=== PATIENT | male | born 1960 | race Caucasian/White ===

== ENCOUNTER 2018-01-15 14:30 | Emergency (ER) | payer SELFPAY ==
[~2018-01-15] VITALS: Ht 177.8 cm; Wt 68.2 kg
[2018-01-15 14:33] VITALS: TEMP 98.4
[2018-01-15 14:54] LABS: GASTROCCULT POSITIVE; pH GASTRIC CONTENTS 2
[2018-01-15 14:56] LABS: BASO # 0.2 (0.0-0.2); BASO % 1.3 % (0.0-2.0); EOS % 0.2 % (0-4.0); GRAN # 9.2 (1.4-6.5); GRAN % 74.7 % (42.2-75.2); HEMATOCRIT 42.4 % (42.0-52.0); HEMOGLOBIN 14.9 g/dl (13.5-18.0); LYMPH # 2.1 (1.2-3.4); MEAN CELL VOLUME 92 fl (80.0-100.0); MEAN CORPUSCULAR HEMOGLOBIN 33 pg (27.0-31.0); MEAN CORPUSCULAR HGB CONC 35 g/dl (33.0-37.0); MEAN PLATELET VOLUME 9.5 fl (7.4-10.4); MONO # 0.8 (0.1-0.6); MONO % 6.4 % (1.7-9.3); PLATELET COUNT 317 K/mm3 (130-400); RED BLOOD COUNT 4.59 M/mm3 (4.20-5.60); REDCELL DISTRIBUTION WIDTH-CV 13.2 % (11.5-14.5)
[2018-01-15 15:05] LABS: ALANINE AMINOTRANSFERASE 28 U/L (21-72); ALBUMIN 4.8 gm/dL (3.5-5.0); ALKALINE PHOSPHATASE 105 U/L (50-136); ANION GAP 17 mmol/L (7-16); AST,SGOT 40 U/L (15-37); BILIRUBIN,TOTAL 0.8 mg/dL (0.0-1.0); BLOOD UREA NITROGEN 17 mg/dL (9-20); CALCIUM 10.1 mg/dL (8.4-10.2); CARBON DIOXIDE 23 mmol/L (22-30); CHLORIDE 98 mmol/L (98-107); CREATININE, serum 0.83 mg/dL (0.66-1.25); GLUCOSE 102 mg/dL (74-106); LIPASE 119 U/L (23-300); POTASSIUM 4.4 mmol/L (3.4-5.0); SODIUM 138 mmol/L (137-145); TOTAL PROTEIN 8.8 gm/dL (6.4-8.2)
[2018-01-15 15:27] LABS: TROPONIN-I < 0.012 ng/mL (0.000-0.034)
[2018-01-15] MEDS ORDERED: ARICEPT 5MG PO (15:33)
[2018-01-15] MEDS ORDERED: IPRATROPIUM BROM3 M1 IH (15:33)
[2018-01-15] MEDS ORDERED: NORCO 325 MG-101 TAB PO (15:34)
[2018-01-15] MEDS ORDERED: CATAPRES0.3 MG PO (15:38)
[2018-01-15] MEDS ORDERED: BYVALSON 5 MG-1 EACH PO (17:13)
[2018-01-15 17:45] VITALS: BP 134/83; PULSE 75
[2018-01-15] MEDS ORDERED: PHENERGAN 25 TA25 MG PO (17:58)
== END 2018-01-15 18:31 | disposition home or self-care (01) ==
LOC: COL.ER 14:30
PROVIDERS: Emergency Medicine
DX: R07.89 Other chest pain (principal); R11.10 Vomiting, unspecified; I10 Essential (primary) hypertension; M06.9 Rheumatoid arthritis, unspecified
CPT/HCPCS: C9113; J0780; J7030

== ENCOUNTER 2018-10-03 21:03 | Observation (INO) | payer SELFPAY ==
[~2018-10-03] VITALS: Ht 177.8 cm; Wt 67.9 kg
[~2018-10-03 21:03] MED LIST: ARICEPT 5MG PO; BYVALSON 5 MG-1 EACH PO; CATAPRES0.3 MG PO; IPRATROPIUM BROM3 M1 IH; NORCO 325 MG-101 TAB PO; PHENERGAN 25 TA25 MG PO
[2018-10-03 21:27] LABS: PARTIAL THROMBOPLASTIN TIME 33.2 SECONDS (26.0-37.0)
[2018-10-03 21:29] LABS: BASO # 0.3 (0.0-0.2); BASO % 1.9 % (0.0-2.0); EOS # 0.1 (0.0-0.7); EOS % 0.9 % (0-4.0); GRAN # 10.2 (1.4-6.5); GRAN % 78.5 % (42.2-75.2); HEMATOCRIT 40.8 % (42.0-52.0); HEMOGLOBIN 13.8 g/dl (13.5-18.0); LYMPH # 1.9 (1.2-3.4); LYMPH % 14.4 % (20.0-51.0); MEAN CELL VOLUME 94 fl (80.0-100.0); MEAN CORPUSCULAR HEMOGLOBIN 32 pg (27.0-31.0); MEAN CORPUSCULAR HGB CONC 34 g/dl (33.0-37.0); MEAN PLATELET VOLUME 9.3 fl (7.4-10.4); MONO # 0.5 (0.1-0.6); MONO % 3.9 % (1.7-9.3); PLATELET COUNT 338 K/mm3 (130-400); RED BLOOD COUNT 4.35 M/mm3 (4.20-5.60); REDCELL DISTRIBUTION WIDTH-CV 14.2 % (11.5-14.5)
[2018-10-03 21:31] LABS: D-DIMER < 200.00 ng/mLDDu (200-230)
[2018-10-03 21:45] LABS: ALANINE AMINOTRANSFERASE 6 U/L (21-72); ALBUMIN 4.8 gm/dL (3.5-5.0); ALKALINE PHOSPHATASE 96 U/L (50-136); ANION GAP 9 mmol/L (7-16); AST,SGOT 32 U/L (15-37); BILIRUBIN,TOTAL 0.3 mg/dL (0.0-1.0); BLOOD UREA NITROGEN 11 mg/dL (9-20); C-REACTIVE PROTEIN 0.6 mg/dL (0.0-0.9); CALCIUM 10.5 mg/dL (8.4-10.2); CARBON DIOXIDE 23 mmol/L (22-30); CHLORIDE 109 mmol/L (98-107); CREATININE, serum 0.86 (0.66-1.25); GLUCOSE 108 mg/dL (74-106); LIPASE 206 U/L (23-300); POTASSIUM 4.4 mmol/L (3.4-5.0); SODIUM 141 mmol/L (137-145); TOTAL PROTEIN 8.8 gm/dL (6.4-8.2)
[2018-10-03 21:56] LABS: TROPONIN-I < 0.012 ng/mL (0.000-0.035)
[2018-10-03 22:44] LABS: PHOSPHOROUS 3.7 mg/dL (2.5-4.5)
[2018-10-04] VITALS (10 sets, daily range): BP systolic 124–177; BP diastolic 83–102; PULSE 54–115; TEMP 98.7–98.9
[2018-10-04] MEDS ORDERED: OMEGA-3 1000 MG1 CAP PO (01:24)
[2018-10-04] MEDS ORDERED: MULTI VITAMINS1 TAB PO (01:25)
--- NOTE | 2018-10-04 01:41 | NUR ---
Patient arrived to room accompanied by . Reports pain is better- 4/10 in chest. Elevated BP, bradycardia with HR in 50's. Diminished lung sounds bilaterally. Ambulatory to bed. Alert and oriented at this time, does report patient does have some memory problems.
--- NOTE | 2018-10-04 05:28 | NUR ---
Pt slept on/off throughout the night. Reports chest pain improved since coming up to the floor. Blood pressure improved after norvasc administration. Cardiology consult this am, lexiscan and ECHO as well.
--- NOTE | 2018-10-04 07:05 | NUR ---
Report given to SHILOH Collier.
[2018-10-04 07:22] LABS: BASO # 0.1 (0.0-0.2); BASO % 0.7 % (0.0-2.0); GRAN # 10.6 (1.4-6.5); GRAN % 84.9 % (42.2-75.2); HEMATOCRIT 39.4 % (42.0-52.0); HEMOGLOBIN 13.2 g/dl (13.5-18.0); LYMPH # 1.2 (1.2-3.4); LYMPH % 9.8 % (20.0-51.0); MEAN CELL VOLUME 93 fl (80.0-100.0); MEAN CORPUSCULAR HEMOGLOBIN 31 pg (27.0-31.0); MEAN CORPUSCULAR HGB CONC 34 g/dl (33.0-37.0); MEAN PLATELET VOLUME 9.8 fl (7.4-10.4); MONO # 0.5 (0.1-0.6); MONO % 4.2 % (1.7-9.3); PLATELET COUNT 322 K/mm3 (130-400); RED BLOOD COUNT 4.23 M/mm3 (4.20-5.60); REDCELL DISTRIBUTION WIDTH-CV 14.3 % (11.5-14.5)
[2018-10-04 07:34] LABS: CALCIUM 9.9 mg/dL (8.4-10.2); CREATININE, serum 0.76 (0.66-1.25); POTASSIUM 4.1 mmol/L (3.4-5.0)
[2018-10-04] MEDS ORDERED: PROTONIX 40MG T40 MG PO (11:44)
[2018-10-04] MEDS ORDERED: NICODERM C21 MG/PATC TD (11:47)
--- NOTE | 2018-10-04 11:55 | NUR ---
First visit from the rod bending machine operator. No needs right now.
--- NOTE | 2018-10-04 14:40 | NUR ---
Patient is discharging home. Discharge instructions discussed with patient. Him and his has a few questions about treating his GERD. Explained that the protonix is to treat that. They verbalized understanding. Copies of discharge instructions sent with patient. Follow up made with his primary and he knows to call cardiology on Sunday for a follow up, the office was closed already. Copies of discharge instructions sent with patient. Patient walked out with Giselle ARMSTRONG.
--- NOTE | 2018-10-04 16:00 | NUR ---
SW unable to meet with patient before discharge.
[2018-10-04 16:21] LABS: PTH,INTACT 33.6 pg/mL (6.6-88.9)
== END 2018-10-04 14:40 | disposition home or self-care (01) ==
LOC: COL.ER 21:03 → SURG 23:50
PROVIDERS: Emergency Medicine; Nurse Practitioner; ADMIT Hospitalist
DX: R07.9 Chest pain, unspecified (principal); I10 Essential (primary) hypertension; G89.29 Other chronic pain; F10.20 Alcohol dependence, uncomplicated; F17.210 Nicotine dependence, cigarettes, uncomplicated; Z88.6 Allergy status to analgesic agent; E83.52 Hypercalcemia; M54.9 Dorsalgia, unspecified; I08.1 Rheumatic disorders of both mitral and tricuspid valves; Z80.3 Family history of malignant neoplasm of breast; Z80.42 Family history of malignant neoplasm of prostate; Z82.3 Family history of stroke
CPT/HCPCS: A9500; C9113; G0378; J2270; J2405; J2765; J2785; J3010; Q9967

== ENCOUNTER 2020-11-02 16:30 | Observation (INO) | payer SELFPAY ==
[~2020-11-02] VITALS: Ht 180.3 cm; Wt 63.6 kg
[~2020-11-02 16:30] MED LIST changes: +MULTI VITAMINS1 TAB PO; +NICODERM C21 MG/PATC TD; +OMEGA-3 1000 MG1 CAP PO; +PREDNISONE20 MG PO; +PROTONIX 40MG T40 MG PO; +ZITHROMAX 250M250 MG PO
[2020-11-02 17:31] LABS: BASO # 0.2 (0.0-0.2); BASO % 1.4 % (0.0-2.0); EOS # 1.4 (0.0-0.7); GRAN # 7.2 (1.4-6.5); GRAN % 61.6 % (42.2-75.2); HEMOGLOBIN 11.9 g/dl (13.5-18.0); LYMPH # 2.3 (1.2-3.4); LYMPH % 19.4 % (20.0-51.0); MEAN CELL VOLUME 95 fl (80.0-100.0); MEAN CORPUSCULAR HEMOGLOBIN 31 pg (27.0-31.0); MEAN CORPUSCULAR HGB CONC 33 g/dl (33.0-37.0); MEAN PLATELET VOLUME 9.5 fl (7.4-10.4); MONO # 0.6 (0.1-0.6); MONO % 5.3 % (1.7-9.3); PLATELET COUNT 335 K/mm3 (130-400); RED BLOOD COUNT 3.87 M/mm3 (4.20-5.60); REDCELL DISTRIBUTION WIDTH-CV 13.8 % (11.5-14.5)
[2020-11-02 17:32] LABS: HEMATOCRIT 36.6 % (42.0-52.0)
[2020-11-02 18:13] LABS: ALANINE AMINOTRANSFERASE 15 U/L (4-49); ALBUMIN 3.9 gm/dL (3.5-5.0); ALKALINE PHOSPHATASE 80 U/L (50-136); ANION GAP 7 mmol/L (7-16); AST,SGOT 30 U/L (15-37); BILIRUBIN,TOTAL 0.5 mg/dL (0.0-1.0); BLOOD UREA NITROGEN 13 mg/dL (9-20); CALCIUM 8.9 mg/dL (8.4-10.2); CARBON DIOXIDE 24 mmol/L (22-30); CHLORIDE 108 mmol/L (98-107); CREATININE, serum 0.69 (0.66-1.25); GLUCOSE 84 mg/dL (74-106); POTASSIUM 3.5 mmol/L (3.4-5.0); SODIUM 139 mmol/L (137-145); TOTAL PROTEIN 7.5 gm/dL (6.4-8.2)
[2020-11-02 18:29] LABS: TROPONIN-I < 0.012 ng/mL (0.000-0.035)
[2020-11-02 21:54] VITALS: BP 176/85; PULSE 62; TEMP 98.3
--- NOTE | 2020-11-02 21:57 | NUR ---
Received patient via wheelchair from ED at 2145H. Patient is alert and oriented. He is on room air. With INT on left AC. Assesment and med rec done. He complains of generalized pain, with pain score of 5/10. Informed patient of the PRN medications that he has on board. Nicotine patch placed on his right upper arm. Provided patient with sandwich box and water. Call light within reach.
[2020-11-02] MEDS ORDERED: ZESTRIL 20MG TA20 MG PO (22:13)
--- NOTE | 2020-11-02 23:21 | NUR ---
Lalita PENA went in to see and assess patient.
[2020-11-03] VITALS (7 sets, daily range): BP systolic 134–176; BP diastolic 86–125; PULSE 63–90; TEMP 97.9–98.6
--- NOTE | 2020-11-03 00:04 | NUR ---
Patient still with complains of generalized pain. [place] given. Informed patient that he is not allowed to smoke in the hospital. He verbalizes understanding. Offered nicotine gum but he refused.
--- NOTE | 2020-11-03 04:55 | NUR ---
Informed patient to be NPO for preparation of his MRI. Still with generalized pain, scoring 6/10. [place] given.
--- NOTE | 2020-11-03 07:11 | NUR ---
Pt refused lab draws this AM.
--- NOTE | 2020-11-03 10:25 | NUR ---
specimens obtained and placed in formalin and RPMI by Dr Robledo. Specimens labeled.
--- NOTE | 2020-11-03 10:35 | NUR ---
No bandaid placed to site due to location in left axilla, pt to floor per wheelchair by Garth.
--- NOTE | 2020-11-03 13:15 | NUR ---
Pt awake and alert upon entry, no C/O pain at this time. Shift assessments complete, left Pt sitting in the recliner, cvall light in reach.
--- NOTE | 2020-11-03 15:16 | NUR ---
First visit from the clinical laboratory medical director. Patient was gone for a procedure. Director Regulatory Compliance prayed for the patient.
--- NOTE | 2020-11-03 16:45 | NUR ---
Social Workers met with the patient, the patient's , Jenni and the patient's daughter, Patricia to complete intake. The patient lives independently in [place]. The patient has a walker but does not need it to ambulate. The patient's PCP is Estela Watt. The patient receives medications from [facility] locally. The patient was does not have advanced directives but was interested in completing DPOA-HC form. Form provided. This MEKA and MEKA Kay witnessed. A copy was placed in the chart and original and copies to the patient. The patient plans to return home with family at discharge. *Discharge disposition: Home with family
[2020-11-03] MEDS ORDERED: DECADRON 4MG TAB4 MG PO (19:04)
[2020-11-03] MEDS ORDERED: ATARAX 25MG25 MG/TAB PO (19:06)
--- NOTE | 2020-11-03 20:56 | NUR ---
PATIENT OK TO DISCHARGE PER DR. RUTLEDGE, CLARIFIED FACE TO FACE. REVIEWED DISCHARGE INSTRUCTIONS (FOLLOW UP APPOINTMENT, MEDICATIONS AND TO CALL IF NEED BE AFTER DISCHARGE). PATIENT UNDERSTOOD TEACHING WITH NO FURTHER QUESTIONS AT THIS TIME. DAUGHTER AND WITH PATIENT SUPPORT DURING TEACHING. THIS NURSE WALKED WITH PATIENT TO ED WHERE PATIENT WAS PICKED UP BY HIS DAUGHTER.
== END 2020-11-03 19:30 | disposition home or self-care (01) ==
LOC: COL.ER 16:30 → MEDICAL 20:42
PROVIDERS: Nurse Practitioner Primary Care; ADMIT Emergency Medicine
DX: C77.3 Secondary and unspecified malignant neoplasm of axilla and upper limb lymph nodes (principal); C79.31 Secondary malignant neoplasm of brain; D63.8 Anemia in other chronic diseases classified elsewhere; R91.8 Other nonspecific abnormal finding of lung field; I10 Essential (primary) hypertension; G89.29 Other chronic pain; M54.9 Dorsalgia, unspecified; F17.210 Nicotine dependence, cigarettes, uncomplicated; Z79.899 Other long term (current) drug therapy
CPT/HCPCS: 99223-AI; G0378; J1170; J2060; J2270; J8540; Q9967